=== PATIENT | female | born 1985 ===

== ENCOUNTER → 2019-09-08 | Outpatient (CLI) | payer BC ==
--- NOTE | 2019-09-08 13:38 | Diagnostic Imaging Report ---
INDICATION: survey. TECHNIQUE: Multiple real-time grayscale images were obtained over the gravid uterus. COMPARISON: None FINDINGS: There is a single living intrauterine in a breech presentation. The biometry correlates with gestational age of 21 weeks 0 days. Amniotic fluid index is 14.5. Placenta is posterior. There is no previa. The anatomical survey is unremarkable. This includes a four-chamber heart and three-vessel cord. Heart rate is 155 beats per minute. Maternal adnexa is unremarkable. There was somewhat suboptimal evaluation of the facial features due to lie. Biometrical measurements are as follows: Biparietal 4.93 cm, age 21 weeks 0 days. Head circumference 18.66 cm, age 21 weeks 0 days. Abdominal circumference 15.48 cm, age 20 weeks 5 days. Femur length 3.54 cm, age 21 weeks 2 days. Sonographic estimate age: 21 weeks 0 days. Sonographic estimated date of delivery: 01/19/2020. Estimated Weight: 386 gm (+/- 56 gm). LMP percentile: 7%. heart rate: 155 beats per minute. number: 1 of 1. IMPRESSION: Single living intrauterine with sonographically estimated gestational age of 21 weeks 0 days and estimated date of confinement of January 19, 2020. Dictated by: Dictated on workstation # [id number]
== END ==
LOC: RAD 12:28
PROVIDERS: ATTEND Nurse Practitioner Women's Health
DX: Z36.89 Encounter for other specified antenatal screening (principal); Z3A.21 21 weeks gestation of pregnancy
CPT/HCPCS: 76805